=== PATIENT | male | born 1965 | race Caucasian/White ===

== ENCOUNTER 2017-11-10 09:46 | Emergency (ER) | payer OTHER ==
[~2017-11-10] VITALS: Ht 188 cm; Wt 116.0 kg
[~2017-11-10 09:46] MED LIST: ASPIRIN81 M1 PO; CALCIUM 500 MG1 EACH PO; CIPRO500 MG PO; COLACE100 MG PO; FISH OIL WITH1 EACH PO; FLAGYL500 MG PO; MOTRIN800 MG PO; NAPROSYN500 MG PO; NORCO 5/3251 TABLET PO; PREVACID30 MG PO; TUMS500 MG PO; ULTRAM50 MG PO; VITAMINS; ZANTAC150 MG PO
[2017-11-10 10:19] LABS: HEMOGLOBIN 14.4 G/DL (12.5-16.6); MCH 28.7 PG (29.0-34.0); MCHC 33.5 G/DL (30.0-36.0); MCV 85.7 FL (86-99); PLATELET COUNT 143 K/uL (156-360); RBC DIS.WIDTH-CV 15.1 % (11.8-14.6); RBC DIS.WIDTH-SD 47.7 % (39-53); RED BLOOD COUNT 5.02 M/uL (4.00-5.50); WHITE BLOOD COUNT 11.2 K/uL (4.1-10.2)
[2017-11-10 10:32] LABS: CHLORIDE 104 mEq/L (99-109); POTASSIUM 4.5 mEq/L (3.7-5.4); SODIUM 138 mEq/L (136-147)
[2017-11-10 10:34] LABS: GLUCOSE 109 mg/dL (70-99)
[2017-11-10 10:38] LABS: CREATININE 0.9 mg/dL (0.6-1.3); GFR ESTIMATE (CALCULATED) > 59 mL/min/ (58.99-99999)
[2017-11-10 10:39] LABS: UREA NITROGEN (BUN) 17 mg/dL (9-23)
[2017-11-10 10:46] LABS: TROP-I INTERPRETATION NEGATIVE; TROPONIN-I < 0.01 ng/mL (0.0-0.30)
[2017-11-10 10:50] LABS: D-DIMER ELISA < 150.00 ng/mLDDU (<230)
[2017-11-10 12:32] LABS: TROP-I INTERPRETATION NEGATIVE; TROPONIN-I < 0.01 ng/mL (0.0-0.30)
[2017-11-10 13:25] VITALS: BP 133/94
== END 2017-11-10 13:27 | disposition home or self-care (01) ==
LOC: EME 09:46
PROVIDERS: Emergency Medicine
DX: R07.89 Other chest pain (principal); E78.5 Hyperlipidemia, unspecified; K21.9 Gastro-esophageal reflux disease without esophagitis; F17.200 Nicotine dependence, unspecified, uncomplicated; Z88.0 Allergy status to penicillin; Z88.1 Allergy status to other antibiotic agents; Z88.8 Allergy status to other drugs, medicaments and biological substances; Z79.82 Long term (current) use of aspirin
CPT/HCPCS: 71046; 80048; 84484; 85027; 85379; 93005; 99281; 99285